=== PATIENT | male | born 1995 | race Hispanic/Latino ===

== ENCOUNTER 2021-12-29 11:52 | Outpatient (CLI) | payer OTHER, SELFPAY ==
--- NOTE | ~2021-12-29 | XR_ITS ---
EXAMINATION: XR chest 2V DATE: 12/29/2021 12:09 INDICATION: Unspecified acute lower respiratory infection for 2 months. TECHNIQUE: Frontal and lateral views of the chest were obtained. COMPARISON: Chest single view 02/03/2016 FINDINGS: The chest demonstrates clear lungs without pneumonia, pleural effusion, or pneumothorax. Th e heart size is normal. IMPRESSION: 1. No acute cardiopulmonary disease. Reviewed, dictated and finalized at location A.
== END 2021-12-29 11:53 | disposition home or self-care (01) ==
PROVIDERS: PCP Family Medicine; Visit Provider Physician Assistant Medical
DX: J22 Unspecified acute lower respiratory infection (principal)
CPT/HCPCS: 71046

== ENCOUNTER 2022-01-13 15:23 | Emergency (ER) | payer OTHER, SELFPAY ==
[2022-01-13 15:34] VITALS: BP 138/85; PULSE 100; RESP 16; TEMP 37.2; O2SAT 98
--- NOTE | 2022-01-13 15:55 | ED.URI ---
HPI - URI/Sore Throat General Chief Complaint: Upper Respiratory Infection Stated Complaint: sore throat Time Seen by Provider: 01/13/22 15:56 Source: patient Mode of arrival: ambulatory Limitations: no limitations History of Present Illness HPI Narrative: 26-year-old male presents with complaint of nasal congestion and sinus pressure for 2 to 3 months. Has seen his primary care physician twice for this complaint. Reports last time he was there he told him that he was wheezing and coughing. Was sent for a chest x-ray but it was normal. Patient states that he was given 7 days of an antibiotic which which did not help any of the symptoms. Started having left ear pain 2 to 3 days ago. Afebrile. Not taking any daily antihistamines. No shortness of breath or chest pain. All systems reviewed and negative except as noted above. Related Data Allergies Allergy/AdvReac Type Severity Reaction Status Date / Time No Known Allergies Allergy Verified 12/29/21 11:12 Review of Systems Review of Systems: CONSTITUTIONAL: Denies fever, chills, or sweats. EYES: Denies visual changes, redness, or discharge. ENT: Reports rhinorrhea, congestion, sore throat and left ear pain. CARDIOVASCULAR: Denies chest pain, palpitations, or edema. RESPIRATORY: Reports cough and wheezing. Denies dyspnea. GASTROINTESTINAL: Denies abdominal pain, nausea, vomiting, or diarrhea. GENITOURINARY: Denies dysuria or hematuria. SKIN: Denies rash or itching. MUSCULOSKELETAL: Denies back pain, joint pain, or myalgia. NEUROLOGIC: Denies headache, numbness, or weakness. PSYCHIATRIC: Denies anxiety or depression. All other systems reviewed are negative, except as documented in HPI. [facility] Past Medical History Medical History (Updated 01/13/22 @ 16:08 by Caty Steele NP) Allergic rhinitis Anxiety Lower respiratory tract infection Family History Family History Father Hypertension Family history of type 2 diabetes mellitus Social History Social History Smoking status: Never smoker Second hand tobacco smoke exposure: No Alcohol intake: current Drinks per week: 6 Substance use: current Substance use type: marijuana Other substance usage details: every other day-smoking Comments Reviewed Exam Narrative: GENERAL: This is a well-nourished, well-developed patient, in no apparent distress. HEAD: normocephalic, atraumatic. EYES: PERRL. Sclera clear/white. Vision is grossly intact. EARS: External ears normal, auditory canals clear and without drainage, erythema to left TM with purulence. NOSE: External nose normal with clear nasal drainage. Moderate congestion with maxillary sinus tenderness. Nares are erythematous and swollen. THROAT: Mucous membranes moist, mild erythema to posterior pharynx with clear postnasal drainage. NECK: Neck supple, non-tender without lymphadenopathy, masses or thyromegaly. CARDIOVASCULAR: Regular rate and rhythm without murmurs, gallops, or rubs. RESPIRATORY: Mild expiratory wheeze to upper and middle lobes. SKIN: warm, Dry, intact with no suspicious lesions or rash, good texture and turgor. NEURO: awake, alert, and oriented to person, place and time. There were no obvious focal neurologic abnormalities. EXTREMITIES: Normal range of motion to all extremities. Course Course Level of Care: Express Care Visit Vital Signs Vital signs: Vital Signs Temperature 37.2 C 01/13/22 15:34 Pulse Rate 100 01/13/22 15:34 Respiratory Rate 16 01/13/22 15:34 Blood Pressure 138/85 01/13/22 15:34 Pulse Oximetry 98 01/13/22 15:34 Temperature 37.2 C 01/13/22 15:34 Pulse Rate 100 01/13/22 15:34 Respiratory Rate 16 01/13/22 15:34 Blood Pressure 138/85 01/13/22 15:34 Pulse Oximetry 98 01/13/22 15:34 Reviewed MDM - URI/Sore Throat MDM Narrative Medical decision making narra
== END 2022-01-13 16:10 | disposition home or self-care (01) ==
PROVIDERS: Emergency Provider Nurse Practitioner Family; PCP Family Medicine
DX: H65.02 Acute serous otitis media, left ear (principal); J01.90 Acute sinusitis, unspecified; R06.2 Wheezing
CPT/HCPCS: 99213; G0463

== ENCOUNTER 2022-11-24 15:00 | Emergency (ER) | payer OTHER, SELFPAY ==
--- NOTE | ~2022-11-24 | XR_ITS ---
XR ankle RT min 3V DATE: 11/24/2022 16:28 INDICATION: Twisted ankle last night. Pain and swelling. TECHNIQUE: 4 views COMPARISON: None FINDINGS: There is moderate lateral soft tissue swelling. No fracture or dislocation of the ankle or ankle mortise. IMPRESSION: Lateral soft tissue swelling; no fracture or dislocation Reviewed, dictated and finalized at location L. [employer]
[2022-11-24 16:05] VITALS: BP 149/84; PULSE 95; RESP 15; TEMP 36.6; O2SAT 97
--- NOTE | 2022-11-24 19:06 | ED.LOWEXIN ---
HPI - Extremity Injury (Lower) General Chief Complaint: Extremity Injury, Lower Stated Complaint: left ankle injury - fall yesterday Time Seen by Provider: 11/24/22 18:52 History of Present Illness HPI Narrative: Patient is a 27-year-old male here for evaluation of right ankle pain since last night. States that he tripped over a curb and landed with his foot in eversion. He did hit his head but denies loss of consciousness. Since then he has had pain at the lateral aspect of his foot. He has been able to walk but states it is painful. No numbness or tingling, limited mobility in the foot. Related Data Allergies Allergy/AdvReac Type Severity Reaction Status Date / Time No Known Allergies Allergy Verified 11/24/22 15:00 Review of Systems Review of Systems: Gen.: Denies fevers or chills Eyes: Denies eye pain or visual change ENT: Denies congestion Respiratory: Denies shortness of breath or cough CV: Denies chest pain or palpitations GI: Denies abdominal pain nausea, emesis or diarrhea denies burning, urgency, frequency or hematuria Musculoskeletal: Reports right ankle pain Neuro: Denies numbness, tingling, weakness or focal weakness Skin: Denies rash Except as documented, all other systems reviewed and negative [facility] Past Medical History Medical History Allergic rhinitis Anxiety Lower respiratory tract infection Family History Family History Father Hypertension Family history of type 2 diabetes mellitus Social History Social History Smoking status: Never smoker Second hand tobacco smoke exposure: No Alcohol intake: current Drinks per week: 6 Substance use: current Substance use type: marijuana Other substance usage details: every other day-smoking Exam Narrative: Gen: alert oriented in NAD Eyes: EOMI, no icterus Pulm: Respirations even and unlabored, symmetric thorax expansion, no audible stridor or visible cyanosis CV: Regular rate per telemetry GI: No distension, no voluntary/involuntary guarding Neuro: AOx4, moves all extremities without apparent difficulty or weakness, follows commands MSK: laxity noted in the ATF ligament, no laxity to deltoid ligament, strong distal pulses, soft tissue swelling over the lateral malleolus without bony tenderness Skin: No jaundice, no visible bruising, rashes, lesions or wounds on exposed skin Psych: Normal mood/affect, insight/judgement good, adequate fund of knowledge, recent/remote memory intact Course Vital Signs Vital signs: Vital Signs Temperature 97.9 F 11/24/22 16:05 Pulse Rate 95 11/24/22 16:05 Respiratory Rate 15 11/24/22 16:05 Blood Pressure 149/84 H 11/24/22 16:05 Pulse Oximetry 97 11/24/22 16:05 Oxygen Delivery Room Air 11/24/22 16:05 Temperature 97.9 F 11/24/22 16:05 Pulse Rate 95 11/24/22 16:05 Respiratory Rate 15 11/24/22 16:05 Blood Pressure 149/84 H 11/24/22 16:05 Pulse Oximetry 97 11/24/22 16:05 Oxygen Delivery Room Air 11/24/22 16:05 MDM - Extremity Injury (Lower) MDM Narrative Medical decision making narrative: 27-year-old male here for evaluation of right ankle pain after a fall landing with his foot in eversion yesterday. Patient is soft tissue swelling to the lateral malleolus but no bony tenderness, able to ambulate. He does have slight ligamentous laxity noted at the ATF. Plain films are negative for fracture. Patient is ambulatory without pain, will provide with Adam wrap splinting. Encouraged ibuprofen, ice and rest. Will provide with orthopedic follow-up given laxity of ligament noted. Discharge Plan Discharge Clinical Impression: Right ankle sprain Qualifiers: Encounter type: initial encounter Patient Disposition: Home, Self-Care Condition: Stable Instructions: Antibiotic Form, Ankl
[2022-11-24 19:45] VITALS: BP 140/82; PULSE 90; RESP 18; O2SAT 98
== END 2022-11-24 19:58 | disposition home or self-care (01) ==
LOC: ANHED 19:19
PROVIDERS: Emergency Provider Physician Assistant; PCP Family Medicine
DX: S93.401A Sprain of unspecified ligament of right ankle, initial encounter (principal); W10.1XXA Fall (on)(from) sidewalk curb, initial encounter
CPT/HCPCS: 73610; 99283

== ENCOUNTER 2023-09-27 14:14 | Emergency (ER) | payer OTHER, SELFPAY ==
[2023-09-27 14:19] VITALS: BP 146/98; PULSE 121; RESP 18; TEMP 37.3; O2SAT 100
[2023-09-27 15:13] LABS: Influenza A QL RT-PCR Negative (Negative); Influenza B QL RT-PCR Positive (Negative); RSV RNA, RT-PCR Negative (Negative); SARS-CoV-2 RNA PCR Negative (Negative)
--- NOTE | 2023-09-27 18:14 | ED.GENADULT ---
HPI - General Adult General Chief complaint: Nausea/Vomiting/Diarrhea Stated complaint: vomiting/sob Time Seen by Provider: 09/27/23 17:44 History of Present Illness HPI narrative: Patient is a healthy 28-year-old male here with flu-like symptoms. Patient states that his symptoms all began on 09/21 with chills, subjective fever, cough. He states that over the last 6 days symptoms have progressively worsened. They have now included diarrhea, nausea, cough, lightheadedness, myalgias, sore throat and he has had some difficulty sleeping due to his cough and myalgias. He notes that earlier today he was coughing and felt a ?pop? in his chest did not worsen his shortness of breath prompting him to come to the emergency department for evaluation. He threw up 3 times in our waiting room today. Now has improved nausea and has tolerated PO in the room. Since that time is shortness of breath is significantly improved. He does have a sick contact in a sister with similar symptoms. He has been taking Tylenol, ibuprofen, Pedialyte at home for symptoms and they have somewhat been helping. Related Data Allergies Allergy/AdvReac Type Severity Reaction Status Date / Time No Known Allergies Allergy Verified 11/24/22 15:00 Review of Systems Review of Systems: All systems reviewed & are unremarkable except as noted in HPI and below PMFSH Past Medical History Medical History Allergic rhinitis Anxiety Lower respiratory tract infection Family History Family History Father Hypertension Family history of type 2 diabetes mellitus Social History Social History Smoking status: Never smoker Second hand tobacco smoke exposure: No Alcohol intake: current Drinks per week: 6 Substance use: current Substance use type: marijuana Other substance usage details: every other day-smoking Exam Narrative: GENERAL: Well-appearing, well-nourished, and in no acute distress. HEAD: Normocephalic, atraumatic. EYES: PERRLA and EOMI. ENT: Nares clear. Mucous membranes moist. Posterior pharyngeal erythema, no swelling or exudates. NECK: Supple. CHEST: Clear to auscultation. No respiratory distress. HEART: Tachycardic. Normal peripheral pulses. ABDOMEN: Soft, nontender, nondistended. EXTREMITIES: Normal range of motion. No edema. SKIN: Warm, dry, no rash. NEURO: No focal deficits. Alert and oriented x3. PSYCH: Normal mood and affect. Course Course Emergency Course: Chart review performed. Patient here for flu like symptoms since last . Triage vitals show tachycardic, otherwise within normal limits. Triage viral swab shows Influenza B. Patient seen evaluated, nontoxic appearing. He is tolerating p.o. in the emergency department with no respiratory distress. Will do repeat vital signs as he no longer appears to be as tachycardic. Will do a dose of Zofran as well. Will give patient a couple more days off of work and advised him strict return precautions. He is advised to follow closely with his primary care doctor. He is outside of the window for Tamiflu and does not have risk factors for severe complications from influenza so will defer this treatment at this time. Vital signs have improved. Patient continues to tolerate p.o.. The results of pertinent diagnostic studies and exam findings were discussed. The patient?s provisional diagnosis and plan of care were discussed with the patient and present family. The patient and/or present family expressed understanding of the diagnosis and plan. The nurse was instructed to provide written instructions and appropriate follow-up information. The patient understands their need and responsibility to obtain additional follow-up as instructed. The risks of medications administered and prescribed were discussed w
[2023-09-27] MEDS: ONDANSETRON HCL ODT 4 MG TABLET PO (18:20)
[2023-09-27 18:21] VITALS: BP 128/84; PULSE 101; RESP 18; O2SAT 100
== END 2023-09-27 18:28 | disposition home or self-care (01) ==
PROVIDERS: Emergency Provider Student in an Organized Health Care Education/Training Program; PCP Internal Medicine
DX: J10.1 Influenza due to other identified influenza virus with other respiratory manifestations (principal); Z20.822 Contact with and (suspected) exposure to COVID-19
CPT/HCPCS: 87637; 99283; A9270

== ENCOUNTER 2023-12-06 09:34 | Emergency (ER) | payer OTHER, SELFPAY ==
[2023-12-06 09:47] VITALS: BP 150/80; PULSE 92; RESP 18; TEMP 36.7; O2SAT 100
--- NOTE | 2023-12-06 10:02 | ED.EYEPROB ---
HPI - Eye Problem General Chief complaint: Eye Problems Stated complaint: Left Eye Irritation Time Seen by Provider: 12/06/23 10:02 Source: patient Mode of arrival: ambulatory Limitations: no limitations History of Present Illness HPI Narrative: 28-year-old male presents with complaint of redness, drainage from both eyes. Reports that symptoms worse to left eye. States that is an ongoing problem and has seen an blacksmith hammer operator for it. Has been referred to an blacksmith hammer operator but states no one has called him for appointment. Denies vision changes but reports cannot wear his contacts due to worsening of eye drainage today. Does not have prescription glasses. Needs work note today because he is unable to see his computer without contacts. All systems reviewed and negative except as noted above. Related Data Allergies Allergy/AdvReac Type Severity Reaction Status Date / Time No Known Allergies Allergy Verified 12/06/23 09:51 Review of Systems Review of Systems: CONSTITUTIONAL: Denies fever, chills, or sweats. EYES: Denies visual changes . Reports redness, itching,discharge. ENT: Denies rhinorrhea, congestion, sore throat, or otalgia. CARDIOVASCULAR: Denies chest pain, palpitations, or edema. RESPIRATORY: Denies cough or dyspnea. GASTROINTESTINAL: Denies abdominal pain, nausea, vomiting, or diarrhea. GENITOURINARY: Denies dysuria or hematuria. SKIN: Denies rash or itching. MUSCULOSKELETAL: Denies back pain, joint pain, or myalgia. NEUROLOGIC: Denies headache, numbness, or weakness. PSYCHIATRIC: Denies anxiety or depression. All other systems reviewed are negative, except as documented in HPI. [facility] Past Medical History Medical History Allergic rhinitis Anxiety Lower respiratory tract infection Family History Family History Father Hypertension Family history of type 2 diabetes mellitus Social History Social History Smoking status: Never smoker Second hand tobacco smoke exposure: No Alcohol intake: current Drinks per week: 6 Substance use: current Substance use type: marijuana Other substance usage details: every other day-smoking Comments At time of signature, agree with nursing past medical, surgical, social and family history. There is no relevant family history pertinent to the presenting complaint. Exam Narrative: GENERAL: This is a well-nourished, well-developed patient, in no apparent distress. HEAD: normocephalic, atraumatic. EYES: PERRL. Sclera and conjunctiva erythematous bilaterally with yellowish drainage. Vision is grossly intact. EARS: External ears normal NOSE: External nose normal NECK: Neck supple, non-tender without lymphadenopathy, masses or thyromegaly. CARDIOVASCULAR: Regular rate and rhythm without murmurs, gallops, or rubs. RESPIRATORY: Clear to auscultation. Breath sounds equal bilaterally. No wheezes, rales, or rhonchi. SKIN: warm, Dry, intact with no suspicious lesions or rash, good texture and turgor. NEURO: awake, alert, and oriented to person, place and time. There were no obvious focal neurologic abnormalities. EXTREMITIES: No joint tenderness, effusion, or edema noted. Course Course Level of Care: Express Care Visit Vital Signs Vital signs: Vital Signs Temperature 36.7 C 12/06/23 09:47 Pulse Rate 92 12/06/23 09:47 Respiratory Rate 18 12/06/23 09:47 Blood Pressure 150/80 H 12/06/23 09:47 Pulse Oximetry 100 12/06/23 09:47 Oxygen Delivery Room Air 12/06/23 09:47 Temperature 36.7 C 12/06/23 09:47 Pulse Rate 92 12/06/23 09:47 Respiratory Rate 18 12/06/23 09:47 Blood Pressure 150/80 H 12/06/23 09:47 Pulse Oximetry 100 12/06/23 09:47 Oxygen Delivery Room Air 12/06/23 09:47 Reviewed MDM - Eye Problem MDM Narrative Medical
== END 2023-12-06 10:15 | disposition home or self-care (01) ==
PROVIDERS: Emergency Provider Nurse Practitioner Family; PCP Internal Medicine
DX: H10.33 Unspecified acute conjunctivitis, bilateral (principal); F12.90 Cannabis use, unspecified, uncomplicated
CPT/HCPCS: 99213; G0463

== ENCOUNTER 2024-01-26 16:40 | Emergency (ER) | payer OTHER, SELFPAY ==
--- NOTE | 2024-01-26 16:49 | ED.EYEPROB ---
HPI - Eye Problem General Chief complaint: Eye Problems Stated complaint: pain in left eye,discharge Time Seen by Provider: 01/26/24 17:03 Source: patient and RN notes reviewed Mode of arrival: ambulatory Limitations: no limitations History of Present Illness HPI Narrative: My 8-year-old male presents with concern of for left eye itching, redness, drainage. Reports been going on the last 2-3 days. Reports he has had intermittent issues with this over a couple of months. He also reports over the last year he has had intermittent sinus drainage, congestion. He denies taking any [id number] allergy remedies. He denies vision changes, sinus pain. He is eyes are not crusted shut in the morning. He has an appointment with an eye doctor on Monday. He missed work today for this problem MD chief complaint: eye redness Related Data Allergies Allergy/AdvReac Type Severity Reaction Status Date / Time No Known Allergies Allergy Verified 01/26/24 16:44 Review of Systems Review of Systems: CONSTITUTIONAL: Denies malaise, chills, sweats, or fever. EYES: Denies visual changes. Reports left redness, irritation, discharge. ENT: Reports rhinorrhea, congestion. Denies sinus pain, otalgia or sore throat. SKIN: Denies rash or itching. NEUROLOGIC: Denies numbness, weakness, or headache. PSYCHIATRIC: Denies anxiety or depression. All systems reviewed & are unremarkable except as noted in HPI and below PMFSH Past Medical History Medical History Allergic rhinitis Anxiety Lower respiratory tract infection Family History Family History Father Hypertension Family history of type 2 diabetes mellitus Social History Social History Smoking status: Never smoker Second hand tobacco smoke exposure: No Alcohol intake: current Drinks per week: 6 Substance use: current Substance use type: marijuana Other substance usage details: every other day-smoking Comments At time of signature, agree with nursing past medical, surgical, social and family history. There is no relevant family history pertinent to the presenting complaint Exam Narrative: GENERAL: Well-appearing, well-nourished, and in no acute distress. HEAD: Normocephalic, atraumatic. EYES: PERRLA, sclera clear, and EOMI. No nystagmus. Left conjunctivae mildly injected. Upper and lower eyelid unremarkable, no periorbital edema noted ENT: Nares clear, turbinates pink, no epistaxis. Mucous membranes moist. TM pearly rodgers with sharp light reflex bilaterally; no tragal tenderness. NECK: Supple. CHEST: No respiratory distress. Speaks in full sentences. HEART: Regular rate and rhythm. SKIN: Warm, dry, no visible rash. NEURO: Alert and oriented x3. PSYCH: Normal mood and affect Course Course Emergency Course: Patient is aware of diagnosis, understands and agrees to treatment plan. Anticipatory guidance given. Patient agrees to follow-up as directed and is aware of reasons to seek care at the emergency department. Portions of this record may have been created with voice recognition software Level of Care: Express Care Visit Vital Signs Vital signs: Reviewed. MDM - Eye Problem MDM Narrative Medical decision making narrative: Consideration of the following conditions may be warranted for the presenting problem, they are not final diagnoses: Bacterial conjunctivitis, allergic conjunctivitis, viral conjunctivitis, foreign body, blepharitis, chalazion, hordeolum, corneal abrasion, preseptal cellulitis, orbital cellulitis. No evidence of proptosis, ophthalmoplegia, vision loss, pain with eye movement. Exam findings show no acute concerns or changes; patient is non-toxic appearing and is in no distress. Patient is appropriate for outpatient treatment and follow-up. Critical Care T
[2024-01-26 16:50] VITALS: BP 128/77; PULSE 92; RESP 14; TEMP 36.8; O2SAT 98
== END 2024-01-26 17:15 | disposition home or self-care (01) ==
PROVIDERS: Emergency Provider Nurse Practitioner; PCP Internal Medicine
DX: H10.12 Acute atopic conjunctivitis, left eye (principal)
CPT/HCPCS: 99213; G0463